=== PATIENT | male | born 1975 | race Caucasian/White ===

== ENCOUNTER 2018-03-13 12:26 | Emergency (ER) | payer BC ==
[~2018-03-13] VITALS: Ht 180.3 cm; Wt 81.6 kg
[2018-03-13 12:26] VITALS: BP_SYST 153
[2018-03-13 13:00] LABS: BASOPHILS # (AUTO) 0.1 K/uL (0.0-0.2); BASOPHILS % (AUTO) 1.1 % (0.0-2.0); EOSINOPHILS # (AUTO) 0.1 K/uL (0.0-0.4); EOSINOPHILS % (AUTO) 1.8 % (0.0-4.0); HEMATOCRIT 24.8 % (36-54); LYMPHOCYTES # (AUTO) 1.8 K/uL (1.0-5.5); LYMPHOCYTES % (AUTO) 27.1 % (20.5-51.5); MEAN CORPUSCULAR HEMOGLOBIN 20 pg (27-31); MEAN CORPUSCULAR HGB CONC 29 % (32-36); MEAN CORPUSCULAR VOLUME 68 fL (79.0-98.0); MONOCYTES # (AUTO) 0.4 K/uL (0.0-1.0); MONOCYTES % (AUTO) 5.6 % (1.7-9.3); NEUTROPHILS # (AUTO) 4.4 K/uL (1.8-7.7); NEUTROPHILS % (AUTO) 64.4 % (40.0-70.0); PLATELET COUNT (AUTO) 373 K/uL (130-430); RED BLOOD CELL COUNT(AUTO) 3.66 MIL/uL (4.2-6.2); RED CELL DISTRIBUTION WIDTH 14.9 % (9.0-15.0); WHITE BLOOD COUNT (AUTO) 6.8 K/uL (4.8-10.8)
[2018-03-13 13:10] LABS: CALCIUM 9.6 mg/dL (8.4-11.0); CREATININE 0.87 mg/dL (0.55-1.30); POTASSIUM 4.2 mmol/L (3.5-5.1)
[2018-03-13 13:13] LABS: HEMOGLOBIN 7.2 g/dL (14.0-18.0)
[2018-03-13 13:15] LABS: ALBUMIN 4.2 g/dL (3.4-4.8); TOTAL BILIRUBIN 0.3 mg/dL (0.0-1.0)
[2018-03-13 13:25] LABS: PROTHROMBIN TIME 9.9 SECS (9.5-12.5)
[2018-03-13 20:11] VITALS: BP_SYST 110
== END 2018-03-13 20:11 | disposition home or self-care (01) ==
LOC: SED 12:26
DX: D64.9 Anemia, unspecified (principal); I78.0 Hereditary hemorrhagic telangiectasia
CPT/HCPCS: 36415; 80053; 85025; 85610; 85730; 86886; 86900; 86901; 86920; 99283; P9021

== ENCOUNTER 2018-09-04 11:06 | Emergency (ER) | payer BC ==
[~2018-09-04] VITALS: Ht 180.3 cm; Wt 77.1 kg
[2018-09-04 11:06] VITALS: BP_SYST 113
[2018-09-04 11:40] LABS: BASOPHILS # (AUTO) 0.1 K/uL (0.0-0.2); BASOPHILS % (AUTO) 1.3 % (0.0-2.0); EOSINOPHILS # (AUTO) 0.1 K/uL (0.0-0.4); HEMATOCRIT 30.1 % (36-54); HEMOGLOBIN 8.7 g/dL (14.0-18.0); LYMPHOCYTES # (AUTO) 1.2 K/uL (1.0-5.5); LYMPHOCYTES % (AUTO) 24.9 % (20.5-51.5); MEAN CORPUSCULAR HEMOGLOBIN 18 pg (27-31); MEAN CORPUSCULAR HGB CONC 29 % (32-36); MEAN CORPUSCULAR VOLUME 63 fL (79.0-98.0); MONOCYTES # (AUTO) 0.3 K/uL (0.0-1.0); MONOCYTES % (AUTO) 6.6 % (1.7-9.3); NEUTROPHILS # (AUTO) 3.2 K/uL (1.8-7.7); NEUTROPHILS % (AUTO) 65.2 % (40.0-70.0); PLATELET COUNT (AUTO) 304 K/uL (130-430); RED BLOOD CELL COUNT(AUTO) 4.75 MIL/uL (4.2-6.2); RED CELL DISTRIBUTION WIDTH 15.8 % (9.0-15.0)
[2018-09-04 11:57] LABS: INR 0.9 (0.80-1.20); PROTHROMBIN TIME 9.4 SECS (9.5-12.5)
[2018-09-04 11:59] LABS: ALBUMIN 4.1 g/dL (3.4-4.8); CALCIUM 9.6 mg/dL (8.4-11.0); CREATININE 0.99 mg/dL (0.55-1.30); POTASSIUM 4.4 mmol/L (3.5-5.1); TOTAL BILIRUBIN 0.3 mg/dL (0.0-1.0)
[2018-09-04 12:22] VITALS: BP_SYST 113
== END 2018-09-04 12:22 | disposition home or self-care (01) ==
LOC: SED 11:06
DX: R04.0 Epistaxis (principal)
CPT/HCPCS: 36415; 80053; 85025; 85610-TC; 85730-TC; 99283